=== PATIENT | male | born 1985 | race Two or more races ===

== ENCOUNTER 2018-02-13 17:01 | Emergency (ER) | payer MEDICAID ==
[~2018-02-13] VITALS: Ht 180.3 cm; Wt 101.2 kg
[2018-02-13 17:39] VITALS: BP 160/109
--- NOTE | 2018-02-13 17:51 | Emergency Room Report ---
History of Present Illness General Chief Complaint: General Complaint Source: Family Member Present Illness HPI 32-year-old male presents to ER BIB sister complaining of fall and chest pain. Patient Sister reports patient has history of autism. Reports was previously being taken care of by patient's mother however mother recently . Patient complaining of butt and hip pain following fall. reports was trying to get out of a chair when he fell onto his buttocks from chair level. Reports has been able to ambulate since that time. Denies radiation of pain symptoms. Denies bowel or bladder problems. Also complains of chest pain and right arm shaking. Denies known history of cardiovascular disease. Reports pain is reproducible on palpation. Denies shortness of breath abdominal pain, vomiting , diarrhea. Sister reports concern that symptoms may be related to new healthier diet, reports patient no longer eating fatty foods and drinking soda. Allergies: Coded Allergies: No Known Allergies (Unverified , 02/13/18) Patient History Past Medical History: see triage record Reviewed Nursing Documentation: PMH: Agreed; PSxH: Agreed Nursing Documentation-PMH Past Medical History: No History, Except For Hx Neurological Problems: Yes - Autism Review of Systems All Other Systems: negative except mentioned in HPI Physical Exam Vital Signs Date Time Temp Pulse Resp B/P (MAP) Pulse Ox O2 Delivery O2 Flow Rate FiO2 02/13/18 17:30 98.7 83 16 160/109 98 Room Air 98.8 Sp02 EP Interpretation: reviewed, normal General Appearance: well appearing, no apparent distress, alert, GCS 15, non- toxic Head: normocephalic, atraumatic Eyes: bilateral eye normal inspection, bilateral eye PERRL ENT: hearing grossly normal, normal pharynx, no angioedema, normal voice, uvula midline, moist mucus membranes Neck: full range of motion Respiratory: lungs clear, normal breath sounds, no rhonchi, no respiratory distress, no accessory muscle use, no wheezing, speaking full sentences, other - chest tender to palpation, no deformity, no flail chest Cardiovascular #1: regular rate, rhythm, no edema Cardiovascular #2: 2+ radial (R), 2+ radial (L), 2+ dorsalis pedis (R), 2+ dorsalis pedis (L) Gastrointestinal: non tender, soft, no mass, non-distended, no guarding, no rebound Genitourinary: no CVA tenderness Musculoskeletal: back normal, digits/nails normal, gait/station normal, normal range of motion, non-tender, other - no leg length discrpenacy Neurologic: alert, oriented x3, responsive, canteen attendant III-XII nml as tested, motor strength/tone normal, SLR negative, sensory intact, cerebellar normal, normal gait, other - no tongue deviation, no facial droop, able to furrow brow Reflexes: 2+ knee (R), 2+ knee (L) Skin: no rash Medical Decision Making PA Attestation Dr. Quan is my supervising Physician whom patient management has been discussed with. Diagnostic Impression: Primary Impression: Chest pain, non-cardiac Additional Impression: Fall ER Course Pt. presents to the ED c/o fall and chest pain. Ddx considered but are not limited to muscle sprain, strain, contusion, [place], electrolyte abnormality, diabetes. no bowel or bladder incontinence, low suspicion for cauda equina. On PE, chest is TTP; chest pain likely musculoskeletal in nature secondary to cough, does not require cardiac workup at this time. Patient instructed to take NSAIDs as needed for pain symptoms. ordered basic labs to rule out underlying pathology and possible cardiac cause. Vital signs: are WNL, pt. is afebrile ER COURSE: Full range of motion of lower extremities, negative straight leg test, no radiation of pain, low suspicion for fracture, does not require imaging at this time. Will provide pain medication. No head trauma. No focal neuro deficits, no muscle weakness noted. patient able ambulate independently without difficulty, no weakness noted on ambulation. Do not believe patient requires imaging of head at this time. low suspicion for cerebrovascular event. CBC and CMP unremarkable, labs shows no elevation in WBC or LFTs, no abnormal electrolytes. no elevation in Troponin. EKG show no ST elevation or arrhythmia. CXR negative for acute disease. Chest pain likely musculoskeletal in nature. Will provide medication for pain relief. Reports feeling better, smiling and in no acute distress, nontoxic appearing. no tremor noted in right arm, full range of motion, neurovascularly intact, follow-up with neurologist for further diagnosis and treatment. Does not require imaging at this time. OK for discharge to home. Followup with PCP in 1-2 days for further referral and treatment. DISCHARGE: Rx provided for ibuprofen for pain At this time pt is stable for d/c to home. Patient is resting comfortably, in no acute distress, nontoxic appearing, talking without difficulty. Patient to take medications as instructed Will provide with patient care instructions and any necessary prescriptions. Care plan and follow-up instructions provided. Patient instructed to follow-up with primary care provider in 3 - 5 days. Patient questions asked and answered. Patient reports understanding and agreement to treatment plan. ER precautions given. Patient instructed to return to ER immediately for any new or worsening of symptoms including but not limited to increasing SOB, persistent fever, chest pain, intractable vomiting. - Please note that this Emergency Department Report was dictated using [employer] physical therapist technology software, occasionally this can lead to erroneous entry secondary to interpretation by the dictation equipment. Labs Test 02/13/18 17:57 White Blood Count 8.3 K/UL (4.8-10.8) Red Blood Count 5.29 M/UL (4.70-6.10) Hemoglobin 15.2 G/DL (14.2-18.0) Hematocrit 46.3 % (42.0-52.0) Mean Corpuscular Volume 88 FL (80-99) Mean Corpuscular Hemoglobin 28.8 PG (27.0-31.0) Mean Corpuscular Hemoglobin Concent 32.9 G/DL (32.0-36.0) Red Cell Distribution Width 12.1 % (11.6-14.8) Platelet Count 292 K/UL (150-450) Mean Platelet Volume 6.0 FL (6.5-10.1) Neutrophils (%) (Auto) 59.5 % (45.0-75.0) Lymphocytes (%) (Auto) 30.1 % (20.0-45.0) Monocytes (%) (Auto) 7.0 % (1.0-10.0) Eosinophils (%) (Auto) 2.1 % (0.0-3.0) Basophils (%) (Auto) 1.4 % (0.0-2.0) Sodium Level 136 MMOL/L (136-145) Potassium Level 4.1 MMOL/L (3.5-5.1) Chloride Level 102 MMOL/L (98-107) Carbon Dioxide Level 24 MMOL/L (21-32) Anion Gap 10 mmol/L (5-15) Blood Urea Nitrogen 12 mg/dL (7-18) Creatinine 0.8 MG/DL (0.55-1.30) Estimat Glomerular Filtration Rate > 60 mL/min (>60) Glucose Level 100 MG/DL (74-106) Calcium Level 9.9 MG/DL (8.5-10.1) Total Bilirubin 0.2 MG/DL (0.2-1.0) Aspartate Amino Transf (AST/SGOT) 20 U/L (15-37) Alanine Aminotransferase (ALT/SGPT) 35 U/L (12-78) Alkaline Phosphatase 63 U/L (46-116) Total Creatine Kinase 46 U/L (26-308) Creatine Kinase MB < 0.5 NG/ML (0.0-3.6) Creatine Kinase MB Relative Index 1.0 Troponin I 0.000 ng/mL (0.000-0.056) Total Protein 8.2 G/DL (6.4-8.2) Albumin 3.9 G/DL (3.4-5.0) Globulin 4.3 g/dL Albumin/Globulin Ratio 0.9 (1.0-2.7) EKG Diagnostic Results Rate: normal Rhythm: NSR ST Segments: no acute changes Other Impression no ST elevation Left axis deviation ASA given to the pt in ED: No PA Scribe Michell Pavon PA-C Rhythm Strip Diag. Results EP Interpretation: yes Rate: 79 Rhythm: NSR, no PVC's, no ectopy HAILEE ScribPineda Pavon PA-C Chest X-Ray Diagnostic Results Chest X-Ray Diagnostic Results : Chest X-Ray Ordered: Yes # of Views/Limited/Complete: 1 View Indication: Chest Pain EP Interpretation: Yes PA Xray: Interpretation reviewed, by supervising MD, and agrees with findings. Interpretation: no consolidation, no effusion, no pneumothorax, no acute cardiopulmonary disease Impression: No acute disease HAILEE Scribe Michell Pavon PA-C Last Vital Signs Date Time Temp Pulse Resp B/P (MAP) Pulse Ox O2 Delivery O2 Flow Rate FiO2 02/13/18 17:39 98.8 83 16 160/109 98 Room Air 98.8 Disposition: HOME, SELF-CARE Condition: Stable Scripts Ibuprofen* (MOTRIN*) 600 Mg Tablet 600 MG ORAL Q8H PRN for For Pain, #30 TAB 0 Refills Prov: Edis Pavon PCherri 02/13/18 Patient Instructions: Costochondritis, [id number], Essential Tremor, Fall Prevention in the Home, [id number] Additional Instructions: Followup with primary care provider in 3 -5 days. Take medications as directed. Patient questions asked and answered. ER precautions given, patient instructed to return to ER immediately for any new or worsening of symptoms. Edis Pavon Feb 13, 2018 17:51
[2018-02-13 18:25] LABS: BASOPHILS % (AUTO) 1.4 % (0.0-2.0); EOSINOPHILS % (AUTO) 2.1 % (0.0-3.0); HEMATOCRIT 46.3 % (42.0-52.0); HEMOGLOBIN 15.2 G/DL (14.2-18.0); LYMPHOCYTES % (AUTO) 30.1 % (20.0-45.0); MEAN CORPUSCULAR VOLUME 88 FL (80-99); NEUTROPHILS % (AUTO) 59.5 % (45.0-75.0); PLATELET COUNT 292 K/UL (150-450); RED BLOOD COUNT 5.29 M/UL (4.70-6.10); RED CELL DISTRIBUTION WIDTH 12.1 % (11.6-14.8); WHITE BLOOD COUNT 8.3 K/UL (4.8-10.8)
[2018-02-13 18:37] LABS: ANION GAP 10 mmol/L (5-15); BLOOD UREA NITROGEN 12 mg/dL (7-18); CALCIUM 9.9 MG/DL (8.5-10.1); CARBON DIOXIDE 24 MMOL/L (21-32); CHLORIDE 102 MMOL/L (98-107); CREATININE 0.8 MG/DL (0.55-1.30); POTASSIUM 4.1 MMOL/L (3.5-5.1); SODIUM 136 MMOL/L (136-145)
[2018-02-13 18:40] VITALS: BP 160/109
[2018-02-13 18:50] LABS: ALANINE AMINOTRANSFERASE 35 U/L (12-78); ALBUMIN 3.9 G/DL (3.4-5.0); ALBUMIN/GLOBULIN RATIO 0.9 (1.0-2.7); ALKALINE PHOSPHATASE 63 U/L (46-116); ASPARTATE AMINO TRANSFERASE 20 U/L (15-37); BILIRUBIN,TOTAL 0.2 MG/DL (0.2-1.0); CKMB < 0.5 NG/ML (0.0-3.6); CREATINE KINASE 46 U/L (26-308)
[2018-02-13] MEDS ORDERED: IBUPROFEN600 MG ORAL (19:01)
--- NOTE | 2018-02-14 13:45 | Diagnostic Imaging Report ---
Indication: Chest pain Technique: XRAY Chest 1v Comparison: None Findings: Limited exam with low lung volumes. Heart size and mediastinal contours within normal limits for technique and low lung volumes. No definite focal consolidation, pleural effusion or pneumothorax. Osseous structures stable. Impression: Limited exam with low lung volume. No definite radiographic evidence of acute pulmonary disease.
--- NOTE | 2018-02-16 12:18 | Cardiology Report ---
APPROVED REPORT EKG Measurement Heart [id number] Normal sinus rhythm Left axis deviation Abnormal ECG
== END 2018-02-13 18:40 | disposition home or self-care (01) ==
LOC: EMR 17:40
DX: R07.89 Other chest pain (principal); F84.0 Autistic disorder
CPT/HCPCS: 36415; 71045; 80053; 82550; 82553; 84484; 85025; 93005; 99283